=== PATIENT | female | born 1970 | race Caucasian/White ===

== ENCOUNTER 2017-07-27 15:36 | Emergency (ER) | payer MEDICAID ==
[~2017-07-27] VITALS: Ht 162.6 cm; Wt 86.2 kg
[2017-07-27 15:50] VITALS: BP 144/68
== END 2017-07-27 16:06 | disposition home or self-care (01) ==
LOC: ER 15:39
DX: B34.9 Viral infection, unspecified (principal); G43.909 Migraine, unspecified, not intractable, without status migrainosus
CPT/HCPCS: 99283; A4606; Z7610

== ENCOUNTER → 2018-10-20 | Emergency (ER) | payer MEDICAID ==
[~2018-10-20] VITALS: Ht 162.6 cm; Wt 83.5 kg
[~2018-10-20] MED LIST: ALBUTEROL FS 2.5 MG/3 ML VIAL.NEB NEB ONE; ALBUTEROL FS 2.5 MG/3 ML VIAL.NEB ONE; IPRATROPIUM NEB FS 0.5 MG/2.5 ML AMPUL.NEB NEB ONE; IPRATROPIUM NEB FS 0.5 MG/2.5 ML AMPUL.NEB ONE
[2018-10-20 15:25] VITALS: BP 140/68
--- NOTE | 2018-10-20 15:59 | NUR ---
RT AT BEDSIDE FOR BREATHING TREATMENT
--- NOTE | 2018-10-20 17:13 | NUR ---
unable to depart from [facility]
== END | disposition home or self-care (01) ==
LOC: ER 15:22
DX: S39.012A Strain of muscle, fascia and tendon of lower back, initial encounter (principal); F17.210 Nicotine dependence, cigarettes, uncomplicated; G43.909 Migraine, unspecified, not intractable, without status migrainosus; Z98.890 Other specified postprocedural states; X58.XXXA Exposure to other specified factors, initial encounter; Y93.89 Activity, other specified; Y92.89 Other specified places as the place of occurrence of the external cause; Y99.8 Other external cause status
CPT/HCPCS: 71045-TC

== ENCOUNTER 2019-03-16 11:41 | Emergency (ER) | payer MEDICAID ==
[~2019-03-16] VITALS: Ht 162.6 cm; Wt 83.9 kg
--- NOTE | 2019-03-16 11:49 | NUR ---
PT CAME INTO THE ED C/O SHARP SHOOTING BACK PAIN 01/02 WHICH STARTED YESTERDAY. PT AAOX4, VSS, BREATHING EVEN AND UNLABORED ON ROOM AIR W/ NAD. PT CONNECTED TO THE MONITOR AND POX. AWAITING FOR MD ZAIDI
[2019-03-16] MEDS ORDERED: KETOROLAC TROMETHAMINE INJ 60 MG/2 ML VIAL IM ONE ×2 (12:17→12:30)
[2019-03-16 12:59] VITALS: BP 116/76
--- NOTE | 2019-03-16 13:27 | NUR ---
Patient discharged to home in stable condition. Written and verbal after care instructions given. Patient verbalizes understanding of instruction.
== END 2019-03-16 13:27 | disposition home or self-care (01) ==
LOC: ER 11:46
DX: M54.5 Low back pain (principal); G43.909 Migraine, unspecified, not intractable, without status migrainosus; Z98.890 Other specified postprocedural states
CPT/HCPCS: 96372; 99283; J1885

== ENCOUNTER 2021-05-06 21:33 | Emergency (ER) | payer MEDICAID ==
[~2021-05-06] VITALS: Ht 162.6 cm; Wt 76.7 kg
--- NOTE | 2021-05-06 22:10 | NUR ---
PT BIBSELF C/O LOWER BACK PAIN X5 DAYS. PT AAOX4 BREATHING EVENLY AND UNLABORED. PT ATTACHED TO MONITOR AND POX. MD AT BEDSIDE. PT GIVEN BLANKET AND CALL LIGHT WITHIN REACH
[2021-05-06] MEDS ORDERED: DEXAMETHASONE SOD PHOSPHATE 10 MG/ML VIAL ONE (22:42)
[2021-05-06] MEDS ORDERED: KETOROLAC TROMETHAMINE INJ 60 MG/2 ML VIAL IM ONE ×2 (22:43→23:00)
--- NOTE | 2021-05-06 22:45 | NUR ---
PT TAKEN TO CT VIA PRADEEP
[2021-05-06] MEDS ORDERED: DEXAMETHASONE SOD PHOSPHATE 4 MG/ML VIAL IM ONE (23:00)
[2021-05-06] MEDS ORDERED: PRED50TA PO (23:39)
--- NOTE | 2021-05-06 23:40 | NUR ---
Patient discharged to home in stable condition. Written and verbal after care instructions given. Patient verbalizes understanding of instruction. pT ambulatory with a steady gait
[2021-05-07 00:16] VITALS: BP 140/86
== END 2021-05-06 23:45 | disposition home or self-care (01) ==
LOC: ER 21:36
DX: M19.90 Unspecified osteoarthritis, unspecified site (principal); M54.50 Low back pain, unspecified; G43.909 Migraine, unspecified, not intractable, without status migrainosus; Z98.890 Other specified postprocedural states; Z79.899 Other long term (current) drug therapy
CPT/HCPCS: 72131; 96372 ×2; 99284; J1100; J1885